=== PATIENT | female | born 1985 ===

== ENCOUNTER 2017-03-15 03:26 | Emergency (ER) | payer MEDICAID, OTHER ==
[2017-03-15] MEDS ORDERED: Sodium Chloride 0.9% 1,000 ML IV SCH (04:15)
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
[2017-03-15 05:48] VITALS: BP 118/82
--- NOTE | 2017-03-16 08:34 | CT ---
Head CT Technique: Multiple axial sections through the brain were obtained. Intravenous contrast was not utilized. Comparison: No previous intracranial imaging. Findings: Ventricles along with basal cisterns and sulci over the convexities are within normal limits for the patient's age. No abnormal parenchymal densities are seen. No evidence of intracranial hemorrhage. No midline shift or mass effect is seen. Bone window settings were reviewed which show no discrete calvarial abnormality. Visualized sinuses are clear. Impression: 1. No acute intracranial abnormality is identified on noncontrast head CT study. Diagnostic code #1
--- NOTE | 2017-03-16 08:34 | CT ---
CT cervical spine Technique: Multiple axial images were obtained from above C1 inferiorly inferior to T1. Reconstructed sagittal and coronal images were reviewed. Findings: Mastoid sinuses are clear. Visualized middle ear cavities are clear. Posterior skull base is intact. Vertebral body heights and disc spaces are maintained. Vertebral bodies and posterior arches are intact. No bony central or bony neural foraminal stenosis is seen. No abnormal subluxation is seen on the reconstructed sagittal images. Impression: 1. No abnormality is identified on CT study of the cervical spine. Diagnostic code #1 Agree with preliminary report issued by [email or web address] ([facility] preliminary report dictated on 03/15/17, 5:29 AM Central Time)
--- NOTE | 2017-03-16 08:34 | CR ---
Chest: Frontal view of the chest was obtained. Comparison: No prior study. Heart size and mediastinum are normal. Lungs are clear. Bony structures are grossly intact. Impression: 1. Nothing acute is identified on frontal chest x-ray. Diagnostic code #1
== END 2017-03-15 06:00 | disposition home or self-care (01) ==
LOC: JD.ED 03:26
DX: F15.229 Other stimulant dependence with intoxication, unspecified (principal); F10.129 Alcohol abuse with intoxication, unspecified; E87.1 Hypo-osmolality and hyponatremia; Z90.49 Acquired absence of other specified parts of digestive tract; F17.210 Nicotine dependence, cigarettes, uncomplicated; Y90.0 Blood alcohol level of less than 20 mg/100 ml
CPT/HCPCS: 36415; 70450; 71010; 72125; 80053; 80306; 84703; 85025; 96360; 99285; G0480; J7040